=== PATIENT | female | born 1995 | race African-American/Black ===

== ENCOUNTER 2020-01-16 06:39 | Inpatient (IN) ==
[2020-01-16] MEDS ORDERED: BUTORPHANOL 2 MG/ML VIAL IV PRN (08:47)
[2020-01-16] MEDS ORDERED: ONDANSETRON 4 MG/2 ML VIAL IV PRN (08:47)
[2020-01-16] MEDS ORDERED: MEPERIDINE 50 MG/1 ML VIAL IV PRN (08:47)
[2020-01-16] MEDS ORDERED: OXYTOCIN/LR 20 UNIT/1,000 ML BAG IV SCH (09:00)
[2020-01-16] MEDS ORDERED: LACTATED RINGERS 1,000 ML IV SCH ×2 (09:00→09:30)
[2020-01-16] MEDS ORDERED: ePHEDrine 50 MG/ML VIAL IV PRN (09:18)
[2020-01-16] MEDS ORDERED: NALOXONE 0.4 MG/ML VIAL IV PRN (09:18)
[2020-01-16] MEDS ORDERED: FAMOTIDINE 20 MG/2 ML VIAL IV ONE (09:18)
[2020-01-16] MEDS ORDERED: LACTATED RINGERS 1,000 ML IV ONE (09:18)
[2020-01-16] MEDS ORDERED: hydrOXYzine HCL 25 MG/1 ML VIAL IM PRN (09:18)
[2020-01-16] MEDS ORDERED: diphenhydrAMINE 50 MG/1 ML VIAL IV PRN ×2 (09:18)
[2020-01-16] MEDS ORDERED: CITRIC ACID/SODIUM CITRATE 30 ML UDCUP PO ONE (09:18)
[2020-01-16] MEDS ORDERED: PROMETHAZINE 25 MG/1 ML VIAL IM ONE (09:18)
[2020-01-16 09:23] LABS: Basophils % 0.1 % (0.0-0.8); Eosinophils % 0.1 % (0.00-10.9); Hematocrit 33.3 VOL% (35.7-47.0); Hemoglobin 11.1 GM/DL (12.0-16.0); Immature Granulocytes % 0.6 %; Immature Granulocytes Absolute 0.05 #; Lymphocytes # 1.3 10*3/uL (1.4-4.0); Lymphocytes % 15.7 % (21.3-54.2); Mean Corpuscular HGB Conc 33.3 GM/DL (32-36); Mean Corpuscular Volume 84.3 FL (87-102); Mean Platelet Volume 12.6 FL (9.6-12.0); Monocytes % 5.6 % (1.7-12.7); Neutrophils % 77.9 % (38.7-73.9); Platelet Count 130 T/CUMM (130-400); Red Blood Count 3.95 MC/CUMM (3.8-5.5); Red Cell Distribution Width 14.3 % (9.3-17.3); White Blood Count 8.5 T/CUMM (4-12)
[2020-01-16] MEDS ORDERED: fentaNYL 2 MCG/ROPIV 0.2% EPID 100 ML EPIDURAL SCH (09:30)
[2020-01-16 09:39] LABS: Hypochromasia 1+; Microcytosis 1+; Platelet Estimate Adequate
[2020-01-16 09:50] LABS: Albumin 2.6 G/DL (3.4-5.0); Bilirubin,Total 0.8 MG/DL (0.2-1.0); Calcium 9.6 MG/DL (8.5-10.1); Osmolality,Calculated 270.8 MOS/KG (273-304); Total Protein 7.3 G/DL (6.4-8.3); Uric Acid 3.6 MG/DL (2.6-6.0)
[2020-01-16 13:12] LABS: Apearance,Urine CLOUDY (Clear); Bilirubin,Urine Negative (Negative); Blood, Urine Large mg/dL (Negative); Glucose,Urine (UA) Negative (Negative); Ketones,Urine 20 mg/dL (Negative); Nitrite,Urine Negative (Negative); Protein,Urine 100 MG/DL; RBC,Urine 3122 /HPF (0-4); Urine Color Red (Yellow); Urine Specific Gravity 1.016 (1.001-1.035); WBC,Urine 5 /HPF (0-6)
[2020-01-16] MEDS ORDERED: LIDOCAINE 1% 50 ML VIAL ONE (15:15)
[2020-01-16] MEDS ORDERED: miSOPROStoL 200 MCG TABLET ONE (15:15)
[2020-01-16] MEDS ORDERED: METHYLERGONOVINE 0.2 MG/1 ML AMP ONE (15:15)
[2020-01-16] MEDS ORDERED: LABETALOL 100 MG/20 ML VIAL IV ONE ×2 (15:46→15:48)
[2020-01-16 16:18] LABS: Cord Arterial Blood HCO3 19.6 MMOL/L
[2020-01-16 16:22] LABS: Cord Venous Blood HCO3 18.1 MMOL/L; Cord Venous Blood PCO2 36.7 MMHG; Cord Venous Blood PO2 34.2
[2020-01-16] MEDS ORDERED: HYDROCORTISONE 2.5% RECTAL CREAM 30 GM TUBE TOP PRN (18:05)
[2020-01-16] MEDS ORDERED: oxyCODONE/ACETAMINOPHEN 5-325 MG TABLET PO PRN (18:05)
[2020-01-16] MEDS ORDERED: OXYTOCIN/LR 20 UNIT/1,000 ML BAG IV ONE (18:05)
[2020-01-16] MEDS ORDERED: MEASLES/MUMPS/RUBELLA VACCINE 0.5 ML VIAL SUBCUT ONE (18:05)
[2020-01-16] MEDS ORDERED: WITCH HAZEL PADS 100/JAR TOP PRN (18:05)
[2020-01-16] MEDS ORDERED: RHO(D) IMMUNE GLOBULIN 300 MCG SYRINGE IM ONE (18:05)
[2020-01-16] MEDS ORDERED: DIPH/TET/ACEL PERT BOOSTER VACCINE 0.5 ML VIAL IM ONE (18:05)
[2020-01-16] MEDS ORDERED: BISACODYL 10 MG SUPP RECTAL PRN (18:05)
[2020-01-16] MEDS ORDERED: BENZOCAINE 20%/MENTHOL 0.5% SPRAY 56 GM CAN TOP PRN (18:05)
[2020-01-16] MEDS ORDERED: LANOLIN 50% CREAM 0.3 OZ TUBE TOP PRN (18:05)
[2020-01-16] MEDS ORDERED: ACETAMINOPHEN 325 MG TABLET PO PRN (18:05)
[2020-01-16] MEDS: oxyCODONE/ACETAMINOPHEN 5-325 MG TABLET PO PRN (18:17)
[2020-01-16] MEDS: DOCUSATE SODIUM 100 MG CAPSULE PO SCH (20:56)
[2020-01-16] MEDS: IBUPROFEN 800 MG TABLET PO PRN (20:56)
[2020-01-17 06:01] LABS: Basophils % 0.1 % (0.0-0.8); Eosinophils % 0.1 % (0.00-10.9); Hematocrit 26.2 VOL% (35.7-47.0); Hemoglobin 9.1 GM/DL (12.0-16.0); Immature Granulocytes % 0.7 %; Lymphocytes # 1.7 10*3/uL (1.4-4.0); Lymphocytes % 12.7 % (21.3-54.2); Mean Corpuscular HGB Conc 34.7 GM/DL (32-36); Mean Corpuscular Volume 82.6 FL (87-102); Mean Platelet Volume 12.5 FL (9.6-12.0); Monocytes % 7.4 % (1.7-12.7); Platelet Count 92 T/CUMM (130-400); Red Blood Count 3.17 MC/CUMM (3.8-5.5); Red Cell Distribution Width 14.3 % (9.3-17.3); White Blood Count 13.7 T/CUMM (4-12)
[2020-01-17 06:29] LABS: Hypochromasia 1+; Platelet Estimate Decreased
[2020-01-17 06:30] LABS: Microcytosis 1+
[2020-01-17] MEDS: atenoloL 25 MG TABLET PO SCH (08:33)
[2020-01-17] MEDS: DOCUSATE SODIUM 100 MG CAPSULE PO SCH ×3 (08:34→21:45)
[2020-01-17] MEDS: FERROUS SULFATE 325 MG TABLET PO SCH ×3 (08:34→21:45)
[2020-01-17] MEDS ORDERED: atenoloL 25 MG TABLET PO SCH (09:00)
[2020-01-17] MEDS: IBUPROFEN 800 MG TABLET PO PRN ×2 (15:33→21:14)
[2020-01-17] MEDS: oxyCODONE/ACETAMINOPHEN 5-325 MG TABLET PO PRN ×2 (15:34→21:13)
[2020-01-18 08:33] VITALS: BP 112/63
[2020-01-18] MEDS: FERROUS SULFATE 325 MG TABLET PO SCH (08:44)
[2020-01-18] MEDS: DOCUSATE SODIUM 100 MG CAPSULE PO SCH (08:46)
[2020-01-18] MEDS: atenoloL 25 MG TABLET PO SCH (08:46)
== END 2020-01-18 14:50 | disposition home or self-care (01) | DRG 560 ==
LOC: N.LDOUT 06:39 → N.LD 06:40 → N.OB 18:22
PROVIDERS: ADMIT Obstetrics & Gynecology; ATTEND Obstetrics & Gynecology